=== PATIENT | female | born 1975 | race Caucasian/White ===

== ENCOUNTER 2021-01-20 12:25 | Outpatient (REF) | payer BC, SELFPAY ==
--- NOTE | 2021-01-20 15:15 | MHC.AU.AEV ---
Adult Audiological Evaluation Date of Visit: 01/20/21 Reason for Appointment: Patient reports that several years ago she accidentally hit the upper left side of her head at work and momentarily blacked out. Ever since then, she has been unable to hear out of her left ear. She also has constant left-sided tinnitus. The tinnitus sounds can vary in tone and loudness, but often present as loud buzzing or whooshing. Additionally, she has experienced intermittent vertigo since the accident, which she describes as brief sensations of either the room spinning or feeling like she is riding a wave. She has also noticed speech difficulties since the accident. She reports that she will find herself at times speaking with reduced intelligibility. Patient has not had MRI/CT scan of her head performed. Does patient feel they have a hearing loss?: Yes If Yes, Which Ear?: Left Ear Has hearing been tested previously?: No Ear History: Ear Deformity: None Reported Recent Ear Drainage: None Reported Recent Ear Pain: Left Ear Family History of Hearing Loss?: No Recent Ear Infections: None Reported Ear Infections in Childhood: None Reported History of Ear Wax Buildup: None Reported Previous Ear Surgery: None Reported Bothersome Tinnitus/Ringing/Noises in Ears: Left Ear Ear used on the phone: Right Ear Blocked/Full Sensation in Ear(s): None Reported History of occupational noise exposure?: Yes History: History: No Medical History: Medical History: Headache, Head Injury, High Blood Pressure Otoscopy: Right Ear: Unremarkable Left Ear: Unremarkable Tympanometry: Tympanometry performed due to: To assess integrity of the middle ear system Right Ear: Normal Middle Ear System (Type A) Left Ear: Normal Middle Ear System (Type A) Otoacoustic Emissions Frequency Range Used: 1.6-8 kHz Right Ear Results: Present Emissions Analysis: Present emissions suggest normal cochlear function. Rules out peripheral hearing loss greater than a mild degree Left Ear Results: Absent Emissions Analysis: Reduced/Absent emissions suggest cochlear dysfunction Hearing Evaluation: Transducer(s) Used: Insert Earphones Method: Conventional Audiometry Stimuli Used: Pure Tones Right Ear: Description of Hearing: Normal hearing from 250-8000 Hz Left Ear: Description of Hearing: Severe to profound sensorineural hearing loss from 250-8000 Hz Speech Recognition Threshold (SRT): Method Used: Recorded Lists Stimuli Used: Spondee Words Right Ear: 15 dBHL Left Ear: 90 dBHL Word Discrimination: Method: Recorded Lists Word Lists Used:: W-22 Right Ear: 96% at 55 dBHL Left Ear: 20% at 110 dBHL (1 out of 5 correct) Interpretation of Results: The left ear presents with severe to profound sensorineural hearing loss, poor word discrimination, and absent otoacoustic emissions. The right ear is within normal range. When one ear is drastically different from the other, it can be difficult to understand speech in the presence of noise. It can also be difficult to locate where sound is coming from. If people are speaking on the left side, behind, or far away, it will also be difficult to understand what is being said. Recommendations: Audiological re-evaluation in one year. Referral to Ear, Nose, and Throat (ENT) is highly recommended to address significant unilateral (left-sided) hearing loss, left-sided tinnitus, vertigo, and speech intelligibility issues that occurred after head trauma. Patient has not yet received an MRI or CT scan. Options to help manage the unilateral hearing loss potentially include a CROS hearing instrument system or a cochlear implant. The use of cochlear implants for single-sided hearing loss is relatively new, and not every ENT surgeon is able to perform the procedure. Eligibility for the procedure would depend on numerous factors, and would be up to the ENT surgeon to determine if it was appropriate. A CROS hearing instrument system is a non-invasive option. At this time, patient feels she would prefer to try a CROS system first before considering more invasive measures. If interested (after ENT medical clearance), patient could contact Georgia Milyoni ([facility]) to discuss how the hearing loss is impacting her job and determine if she is eligible for assistance. She can go to [email or web address] for more information. To help support the patient's hearing: -Minimize background noise when possible. -Speak in a clear voice, from a close distance and [id number]. Avoid talking to the patient from behind her or on her left side. -Gain the patient's full attention before talking. Continue to use hearing protection when around loud noises. Diagnosis: Primary Diagnosis: H90.42 SNHL Unilateral Left Side, W/Unrestricted Contralateral Hearing Secondary Diagnosis: H93.12 Tinnitus, Left Ear Signature: Provider: Alexandra Neri, [facility]
== END 2021-01-20 12:26 | disposition home or self-care (01) ==
LOC: HO.SH 12:25
PROVIDERS: Visit Provider Nurse Practitioner Family
DX: H93.12 Tinnitus, left ear (principal)
CPT/HCPCS: 92557; 92567; 92587

== ENCOUNTER 2021-05-04 12:22 | Outpatient (REF) | payer BC, SELFPAY ==
--- NOTE | ~2021-05-04 | XR_ITS ---
EXAMINATION: RIGHT HIP 2 VIEWS LEFT HIP 2 VIEWS, 653 VIEWS RIGHT HAND 3 VIEWS LEFT HAND 3 VIEWS CLINICAL INFORMATION: Pain COMPARISON: None TECHNIQUE: As above nonweightbearing FINDINGS: Bilateral hips: Within normal limits. No femoral head lesion. Joint spaces preserved. Lumbar sacral spine: Mild scoliosis convex left. Mild endplate spurring throughout. Narrowing of the facet joints L3-S1 without subluxation or spondylolysis. Vertebral pedicles and spinous processes intact. Bilateral hands: Normal mineralization. No evidence for any erosive or degenerative right is. No soft tissue calcifications. XR/XR lumbar spine 2-3V IMPRESSION: Normal bilateral hips and hands. Mild degenerative changes lumbar spine as above.
--- NOTE | ~2021-05-04 | XR_ITS ---
EXAMINATION: RIGHT HIP 2 VIEWS LEFT HIP 2 VIEWS, 653 VIEWS RIGHT HAND 3 VIEWS LEFT HAND 3 VIEWS CLINICAL INFORMATION: Pain COMPARISON: None TECHNIQUE: As above nonweightbearing FINDINGS: Bilateral hips: Within normal limits. No femoral head lesion. Joint spaces preserved. Lumbar sacral spine: Mild scoliosis convex left. Mild endplate spurring throughout. Narrowing of the facet joints L3-S1 without subluxation or spondylolysis. Vertebral pedicles and spinous processes intact. Bilateral hands: Normal mineralization. No evidence for any erosive or degenerative right is. No soft tissue calcifications. XR/XR hand RT min 3V IMPRESSION: Normal bilateral hips and hands. Mild degenerative changes lumbar spine as above.
--- NOTE | ~2021-05-04 | XR_ITS ---
EXAMINATION: RIGHT HIP 2 VIEWS LEFT HIP 2 VIEWS, 653 VIEWS RIGHT HAND 3 VIEWS LEFT HAND 3 VIEWS CLINICAL INFORMATION: Pain COMPARISON: None TECHNIQUE: As above nonweightbearing FINDINGS: Bilateral hips: Within normal limits. No femoral head lesion. Joint spaces preserved. Lumbar sacral spine: Mild scoliosis convex left. Mild endplate spurring throughout. Narrowing of the facet joints L3-S1 without subluxation or spondylolysis. Vertebral pedicles and spinous processes intact. Bilateral hands: Normal mineralization. No evidence for any erosive or degenerative right is. No soft tissue calcifications. XR/XR hip LT min 2V IMPRESSION: Normal bilateral hips and hands. Mild degenerative changes lumbar spine as above.
--- NOTE | ~2021-05-04 | XR_ITS ---
EXAMINATION: RIGHT HIP 2 VIEWS LEFT HIP 2 VIEWS, 653 VIEWS RIGHT HAND 3 VIEWS LEFT HAND 3 VIEWS CLINICAL INFORMATION: Pain COMPARISON: None TECHNIQUE: As above nonweightbearing FINDINGS: Bilateral hips: Within normal limits. No femoral head lesion. Joint spaces preserved. Lumbar sacral spine: Mild scoliosis convex left. Mild endplate spurring throughout. Narrowing of the facet joints L3-S1 without subluxation or spondylolysis. Vertebral pedicles and spinous processes intact. Bilateral hands: Normal mineralization. No evidence for any erosive or degenerative right is. No soft tissue calcifications. XR/XR hip RT min 2V IMPRESSION: Normal bilateral hips and hands. Mild degenerative changes lumbar spine as above.
--- NOTE | ~2021-05-04 | XR_ITS ---
EXAMINATION: RIGHT HIP 2 VIEWS LEFT HIP 2 VIEWS, 653 VIEWS RIGHT HAND 3 VIEWS LEFT HAND 3 VIEWS CLINICAL INFORMATION: Pain COMPARISON: None TECHNIQUE: As above nonweightbearing FINDINGS: Bilateral hips: Within normal limits. No femoral head lesion. Joint spaces preserved. Lumbar sacral spine: Mild scoliosis convex left. Mild endplate spurring throughout. Narrowing of the facet joints L3-S1 without subluxation or spondylolysis. Vertebral pedicles and spinous processes intact. Bilateral hands: Normal mineralization. No evidence for any erosive or degenerative right is. No soft tissue calcifications. XR/XR hand LT min 3V IMPRESSION: Normal bilateral hips and hands. Mild degenerative changes lumbar spine as above.
== END 2021-05-04 12:23 | disposition home or self-care (01) ==
LOC: HO.XRAY 12:22
PROVIDERS: PCP Nurse Practitioner Family; Visit Provider Nurse Practitioner Family
DX: M54.41 Lumbago with sciatica, right side (principal); M54.42 Lumbago with sciatica, left side; M79.641 Pain in right hand; M79.642 Pain in left hand
CPT/HCPCS: 72100; 73130; 73502

== ENCOUNTER 2021-08-23 16:10 | Outpatient (REF) | payer BC, SELFPAY ==
--- NOTE | ~2021-08-23 | XR_ITS ---
EXAMINATION: XR knee LT 4V CLINICAL INFORMATION: Pain COMPARISON: None TECHNIQUE: 4 views of the knee XR/XR knee LT 4V FINDINGS/IMPRESSION: No acute fracture or dislocation. Mild to moderate degenerative changes involving the medial compartment where there is borderline loss of joint space. No joint effusion. Soft tissues are unremarkable.
== END 2021-08-23 16:11 | disposition home or self-care (01) ==
LOC: HO.XRAY 16:10
PROVIDERS: PCP Nurse Practitioner Family; Visit Provider Nurse Practitioner Family
DX: M25.562 Pain in left knee (principal)
CPT/HCPCS: 73564

== ENCOUNTER → 2021-08-24 13:45 | Outpatient (BNVA) | payer BC, SELFPAY | PROVIDERS: PCP Nurse Practitioner Family; Visit Provider Nurse Practitioner Family | DX: Z13.89 Encounter for screening for other disorder (principal) ==

== ENCOUNTER → 2021-09-21 15:33 | Outpatient (BNVA) | payer BC, SELFPAY | PROVIDERS: PCP Nurse Practitioner Family; Visit Provider Nurse Practitioner Family | DX: M25.562 Pain in left knee (principal) ==

== ENCOUNTER → 2021-10-31 09:33 | Outpatient (BNVA) | payer BC, SELFPAY | PROVIDERS: PCP Nurse Practitioner Family; Visit Provider Orthopaedic Surgery | DX: M17.12 Unilateral primary osteoarthritis, left knee (principal); M25.462 Effusion, left knee | CPT/HCPCS: 20610; J1100 ==

== ENCOUNTER 2023-03-23 16:04 | Outpatient (REF) | payer BC, SELFPAY ==
[2023-03-23 17:18] LABS: MANUAL DIFF FLAG NO
[2023-03-23 17:24] LABS: Basophils Absolute Auto 0.1 X10*3/uL (0.0-0.2); Basophils Percent Auto 0.5 % (0-2); Eosinophils Absolute Auto 0.2 X10*3/uL (0.0-0.4); Eosinophils Percent Auto 1.8 % (0-4); Hematocrit 43.6 % (37.0-47.0); Hemoglobin 14.3 g/dl (12.0-16.0); Imm Gran Abs Auto 0.02 X10*3/uL (0.00-0.03); Imm Gran Pct Auto 0.2 % (0.0-0.4); Lymphocytes Absolute Auto 3.6 X10*3/uL (1.2-4.9); Lymphocytes Percent Auto 37.2 % (20-40); Mean Corpuscular HGB Conc 32.8 g/dl (31.0-35.0); Mean Corpuscular Hemoglobin 30.7 pg (27.0-33.0); Mean Corpuscular Volume 93.6 fL (80.0-98.0); Mean Platelet Volume 9.3 fL (9.4-12.3); Monocytes Absolute Auto 0.5 X10*3/uL (0.1-1.2); Neutrophils Absolute Auto 5.4 x10*3/uL (2.0-8.3); Neutrophils Percent Auto 55.3 % (45-73); Platelet Count 368 X10*3/uL (160-400); Red Blood Count 4.66 X10*6/uL (4.20-5.50); Red Cell Distribution Width 13.2 % (11.0-16.0); White Blood Count 9.8 X10*3/uL (4.8-10.8)
[2023-03-23 17:40] LABS: Anion Gap 8 (12-20); Blood Urea Nitrogen 13 mg/dL (9-16); Calcium 9.5 mg/dL (8.4-10.2); Carbon Dioxide 29 mmol/L (22-29); Chloride 106 mmol/L (96-108); Cholesterol 145 mg/dL (<200); Estimated Glomerular Filt Rate > 60; Glucose Random 81 mg/dL (60-115); HDL Cholesterol 44 mg/dL (>40); LDL Cholesterol Calculated 81 mg/dL (<100); Sodium 139 mmol/L (135-145); Triglycerides 101 mg/dL (<150)
[2023-03-23 17:55] LABS: TSH reflex Free T4 1.05 uIU/mL (0.32-4.0)
== END 2023-03-23 16:05 | disposition home or self-care (01) ==
LOC: HO.HHCL 16:04
PROVIDERS: Visit Provider Registered Nurse
DX: R63.0 Anorexia (principal); I10 Essential (primary) hypertension
CPT/HCPCS: 36415; 80048; 80061; 84443; 85025